=== PATIENT | female | born 1955 | race Caucasian/White ===

== ENCOUNTER 2017-08-14 14:56 | Emergency (ER) | payer BC ==
--- NOTE | 2017-08-14 15:42 | ED ---
Neuro HPI - General Chief Complaint: Neuro Symptoms/Deficit Stated Complaint: Poss stroke Time Seen by Provider: 08/14/17 15:09 Source: patient, family, RN notes reviewed Mode of arrival: wheelchair - History of Present Illness Is the patient presenting with stroke symptoms?: No Initial Comments: This is a 61-year-old female with a history of recently diagnosed ear infections who is currently being treated for the same who states she had the onset around 7:00 this morning of some abnormal feeling in her right side of her face and some increased watering of the right eye. She denies any focal weakness to her arms or legs any headache blurry vision nausea vomiting or other symptoms. No neck pain. No prior history of strokes no prior history of Mcgill's palsy. - Related Data Home Medications: Home Medications Medication Instructions Recorded Confirmed Amoxicillin/Potassium Clav 1 tab PO Q12HR 08/14/17 08/14/17 [Augmentin 875-125 Tablet] Enalapril Maleate [Vasotec] 5 mg PO DAILY 08/14/17 08/14/17 Thyroid,Pork [[place] Thyroid] 60 mg PO DAILY 08/14/17 08/14/17 Previous Rx's Medication Instructions Recorded predniSONE 30 mg PO BID #14 tab 08/14/17 valACYclovir HCL [Valacyclovir] 1,000 mg PO TID #21 tab 08/14/17 Allergies/Adverse Reactions: Allergies Allergy/AdvReac Type Severity Reaction Status Date / Time No Known Allergies Allergy Verified 08/14/17 15:18 Review of Systems ROS Statement: Those systems with pertinent positive or pertinent negative responses have been documented in the HPI. ROS Other: All systems not noted in ROS Statement are negative. General Exam - General Exam Comments Initial Comments: This is a well-developed well-nourished awake alert oriented 3 female General appearance: alert, anxious Head exam: Present: atraumatic, normocephalic, normal inspection Eye exam: Present: normal appearance, PERRL, EOMI. Absent: scleral icterus, conjunctival injection, periorbital swelling Pupils: Present: other (Increased tearing) ENT exam: Present: mucous membranes moist, other (Some subtle facial asymmetry in the right compared to the left with some lid lag noted. Before head appears to be involved. Some flattening of the right nasolabial fold compared to the left) Neck exam: Present: normal inspection, full ROM, other (No stridor JVD or bruits ). Absent: tenderness, meningismus, lymphadenopathy Respiratory exam: Present: normal lung sounds bilaterally. Absent: respiratory distress, wheezes, rales, rhonchi, stridor Cardiovascular Exam: Present: regular rate, normal rhythm, normal heart sounds. Absent: systolic murmur, diastolic murmur, rubs, gallop, clicks GI/Abdominal exam: Present: soft, normal bowel sounds. Absent: distended, tenderness, guarding, rebound, rigid Rectal exam: Present: deferred Extremities exam: Present: normal inspection, full ROM, normal capillary refill. Absent: tenderness, pedal edema, joint swelling, calf tenderness Back exam: Present: normal inspection Neurological exam: Present: alert, oriented X3, normal gait, motor sensory deficit, reflexes normal. Absent: CN II-XII intact (Evidence of a right side seventh nerve paresis) Psychiatric exam: Present: normal affect, normal mood Skin exam: Present: warm, dry, intact, normal color. Absent: rash Stroke MDM - NIH Stroke Scale 1a. Level of Consciousness: (0) alert 1b. LOC Questions: (0) answers correctly 1c. LOC Commands: (0) performs tasks correctly 2. Best Gaze: (0) normal 3. Visual: (0) no visual loss 4. Facial Palsy: (1) minor paralysis 5a. Motor Arm Left: (0) no drift 5b. Motor Arm Right: (0) no drift 6a. Motor Leg Left: (0) no drift 6b. Motor Leg Right: (0) no drift 7. Limb Ataxia: (0) absent 8. Sensory: (0) normal 9. Best Language: (0) no aphasia 10. Dysarthria: (0) normal 11. Extinction/Inattention: (0) no abnormality - Thrombolytic Inclusion/Exclusion Thrombolytic Exclusion Criteria: Symptom Onset > 3 Hours - Medical Decision Making The patient presents with symptoms consistent with Mcgill's palsy. She has have evidence of mastoiditis bilaterally she currently is on treatment for this. She 'll be placed on additional medication for treatment of Mcgill's palsy she is to have close follow-up with her doctor and return if any problems. Past Medical History Past Medical History: Hypertension, Thyroid Disorder History of Any Multi-Drug Resistant Organisms: None Reported Past Surgical History: Tonsillectomy Past Psychological History: No Psychological Hx Reported Smoking Status: Former smoker Past Alcohol Use History: Occasional Past Drug Use History: None Reported Course Vital Signs 08/14/17 15:02 Temperature 97.4 F L Pulse Rate 114 H Respiratory 18 Rate Blood Pressure 138/65 O2 Sat by Pulse 98 Oximetry Disposition Clinical Impression: Mcgill's palsy, Mastoiditis Disposition: HOME SELF-CARE Condition: Good Instructions: Mcgill Palsy (ED), Mastoiditis (ED) Additional Instructions: Continue with her current antibiotics, follow-up with her doctor in 2 days, Mick as directed Prescriptions: predniSONE 30 mg PO BID #14 tab valACYclovir HCL [Valacyclovir] 1,000 mg PO TID #21 tab Referrals: Bubba Gan DO [Primary Care Provider] - 1-2 days
--- NOTE | 2017-08-14 15:49 | CT ---
EXAMINATION TYPE: CT brain wo con DATE OF EXAM: 08/14/2017 COMPARISON: NONE HISTORY: 61-year-old female Bilateral ear infection and facial droop. TECHNIQUE: Examination was done in axial plane without intravenous contrast. Coronal and sagittal r econstructions performed. CT DLP: 986.6 mGycm Automated exposure control for dose reduction was used. FINDINGS: There is no evidence of acute intracranial hemorrhage, acute ischemic changes, mass, mass-effect, or extra-axial fluid collection. There is no effacement of cerebral sulci or basal subarachnoid cister ns. There is no hydrocephalus. There is no midline shift. Thurston-white matter distinction is preserv ed. Orbits and globes are intact. Paranasal sinuses are well pneumatized. There is complete opacification of the bilateral mastoid air cells as well as the middle ear cavities. IMPRESSION: Bilateral otomastoiditis characterized by extensive opacification. No acute intracranial abnormality seen.
[2017-08-14] MEDS ORDERED: predniSONE 50 MG TAB PO STA (16:05)
[2017-08-14] MEDS ORDERED: valACYclovir HCL 1,000 MG TABLET PO STA (16:08)
[2017-08-14 16:53] VITALS: BP 140/70; PULSE 78; RESP 16; TEMP 98
== END 2017-08-14 16:52 | disposition home or self-care (01) ==
LOC: EC 14:56
DX: G51.0 Bell's palsy (principal); H70.93 Unspecified mastoiditis, bilateral; I10 Essential (primary) hypertension; E07.9 Disorder of thyroid, unspecified; Z87.891 Personal history of nicotine dependence; Z79.899 Other long term (current) drug therapy
CPT/HCPCS: 70450; 99284; J7512

== ENCOUNTER 2018-08-09 16:07 | Inpatient (IN) | payer BC ==
[2018-08-09] MEDS ORDERED: SODIUM CHLORIDE 0.9% 1,000 ML IV STA ×2 (16:31)
[2018-08-09] MEDS ORDERED: PANTOPRAZOLE 40 MG/10 ML VIAL IVP STA (16:31)
[2018-08-09] MEDS ORDERED: SODIUM CHLORIDE 0.9% 500 ML 500 ML IV STA (16:31)
[2018-08-09] MEDS ORDERED: ONDANSETRON 4 MG/2 ML VIAL IVP STA (16:31)
[2018-08-09] MEDS ORDERED: DICYCLOMINE 10 MG/ML 2 ML AMP IM STA (16:31)
--- NOTE | 2018-08-09 16:32 | ED ---
Abdominal Pain HPI - General Chief Complaint: Abdominal Pain Stated Complaint: nausea/vomiting Time Seen by Provider: 08/09/18 16:24 Source: patient, RN notes reviewed, old records reviewed Mode of arrival: ambulatory Limitations: no limitations - History of Present Illness Initial Comments: This is a 62-year-old female the ER for evaluation presents today for evaluation of abdominal pain epigastric abdominal pain right upper quadrant bowel pain positive nausea positive vomiting occasional fevers. Patient does admit to recent travel history, patient wasn't indicated. Denies diarrheal all is mainly just nausea vomiting is currently. Patient admits to dehydration not feeling well weak lightheaded dizzy. No sick contacts that she knows, no change in medications. No prior surgical history -: days(s) Location: diffuse, RUQ, epigastric Radiation: epigastric Severity: moderate Severity scale (1-10): 7 Quality: cramping, aching Consistency: constant Improves With: nothing Worsens With: vomiting Context: foreign travel, possible food poisoning Associated Symptoms: nausea, vomiting - Related Data Home Medications Medication Instructions Recorded Confirmed Thyroid,Pork [[place] Thyroid] 60 mg PO DAILY 08/14/17 08/09/18 Allergies Allergy/AdvReac Type Severity Reaction Status Date / Time No Known Allergies Allergy Verified 08/09/18 16:42 Review of Systems ROS Statement: Those systems with pertinent positive or pertinent negative responses have been documented in the HPI. ROS Other: All systems not noted in ROS Statement are negative. Past Medical History Past Medical History: No Reported History, Hypertension, Thyroid Disorder History of Any Multi-Drug Resistant Organisms: None Reported Past Surgical History: Tonsillectomy Past Psychological History: No Psychological Hx Reported Smoking Status: Former smoker Past Alcohol Use History: Occasional Past Drug Use History: None Reported General Exam Limitations: no limitations General appearance: alert, in no apparent distress, anxious Head exam: Present: atraumatic, normocephalic, normal inspection Eye exam: Present: normal appearance, PERRL, EOMI. Absent: scleral icterus, conjunctival injection, periorbital swelling ENT exam: Present: normal exam, mucous membranes moist Neck exam: Present: normal inspection. Absent: tenderness, meningismus, lymphadenopathy Respiratory exam: Present: normal lung sounds bilaterally. Absent: respiratory distress, wheezes, rales, rhonchi, stridor Cardiovascular Exam: Present: regular rate, normal rhythm, normal heart sounds. Absent: systolic murmur, diastolic murmur, rubs, gallop, clicks GI/Abdominal exam: Present: soft, tenderness (Right upper quadrant), guarding, normal bowel sounds. Absent: distended, rebound, rigid Extremities exam: Present: normal inspection, full ROM, normal capillary refill. Absent: tenderness, pedal edema, joint swelling, calf tenderness Back exam: Present: normal inspection Neurological exam: Present: alert, oriented X3, CN II-XII intact Psychiatric exam: Present: normal affect, normal mood Skin exam: Present: warm, dry, intact, normal color. Absent: rash Course Vital Signs 08/09/18 08/09/18 16:18 19:15 Temperature 98.2 F 100.4 F H Pulse Rate 98 95 Respiratory 20 18 Rate Blood Pressure 133/100 147/93 O2 Sat by Pulse 98 97 Oximetry - Reevaluation(s) Reevaluation #1: 08/09/18 20:06 Medical record is reviewed Reevaluation #2: 08/09/18 20:06 Patient has pain control Medical Decision Making - Medical Decision Making 62 female the ER for evaluation of abdominal pain nausea vomiting, positive CT for cholecystitis. Patient was placed on antibiotics admitted for surgical evaluation consultation - Lab Data Result diagrams: 08/09/18 17:17 08/09/18 17:17 Lab Results 08/09/18 08/09/18 08/09/18 Range/Units 17:17 17:17 17:17 WBC 17.5 H (3.8-10.6) k/uL RBC 4.44 (3.80-5.40) m/uL Hgb 13.3 (11.4-16.0) gm/dL Hct 39.1 (34.0-46.0) % MCV 88.0 (80.0-100.0) fL MCH 29.9 (25.0-35.0) pg MCHC 33.9 (31.0-37.0) g/dL RDW 12.4 (11.5-15.5) % Plt Count 354 (150-450) k/uL Neutrophils % 84 % Lymphocytes % 10 % Monocytes % 4 % Eosinophils % 1 % Basophils % 0 % Neutrophils # 14.7 H (1.3-7.7) k/uL Lymphocytes # 1.8 (1.0-4.8) k/uL Monocytes # 0.8 (0-1.0) k/uL Eosinophils # 0.1 (0-0.7) k/uL Basophils # 0.0 (0-0.2) k/uL Sodium 137 (137-145) mmol/L Potassium 4.2 (3.5-5.1) mmol/L Chloride 101 (98-107) mmol/L Carbon Dioxide 24 (22-30) mmol/L Anion Gap 12 mmol/L BUN 12 (7-17) mg/dL Creatinine 0.50 L (0.52-1.04) mg/dL Est GFR (CKD-EPI)AfAm >90 (>60 ml/min/1.73 sqM) Est GFR (CKD-EPI)NonAf >90 (>60 ml/min/1.73 sqM) Glucose 109 H (74-99) mg/dL Plasma Lactic Acid Yaw 1.4 (0.7-2.0) mmol/L Calcium 10.2 (8.4-10.2) mg/dL Phosphorus 3.6 (2.5-4.5) mg/dL Magnesium 1.8 (1.6-2.3) mg/dL Total Bilirubin 1.0 (0.2-1.3) mg/dL AST 21 (14-36) U/L ALT 34 (9-52) U/L Alkaline Phosphatase 59 (38-126) U/L Total Protein 7.3 (6.3-8.2) g/dL Albumin 4.4 (3.5-5.0) g/dL Amylase <30 L (30-110) U/L Lipase 93 (23-300) U/L - Radiology Data Radiology results: report reviewed (CT abdomen pelvis positive cholecystitis), image reviewed Disposition Clinical Impression: Abdominal pain, Acute cholecystitis Disposition: ADMITTED IP TO THIS HOSP Condition: Fair Is patient prescribed a controlled substance at d/c from ED?: No Referrals: Bubba Gan DO [Primary Care Provider] - 1-2 days
[2018-08-09] MEDS ORDERED: METOCLOPRAMIDE 5 MG/ML 2 ML VIAL IVP STA (17:04)
[2018-08-09 18:04] LABS: Basophils % (A) 0 %; Eosinophils # (A) 0.1 k/uL (0-0.7); Eosinophils % (A) 1 %; HCT 39.1 % (34.0-46.0); HGB 13.3 gm/dL (11.4-16.0); Lymphocytes # (A) 1.8 k/uL (1.0-4.8); Lymphocytes % (A) 10 %; MCH 29.9 pg (25.0-35.0); MCHC 33.9 g/dL (31.0-37.0); Mean Platelet Volume 7.5; Monocytes # (A) 0.8 k/uL (0-1.0); Monocytes % (A) 4 %; Neutrophils # (A) 14.7 k/uL (1.3-7.7); Neutrophils % (A) 84 %; Platelet Count 354 k/uL (150-450); RBC 4.44 m/uL (3.80-5.40); RDW 12.4 % (11.5-15.5); WBC 17.5 k/uL (3.8-10.6)
[2018-08-09 18:10] LABS: ALT 34 U/L (9-52); AST 21 U/L (14-36); Albumin 4.4 g/dL (3.5-5.0); Alkaline Phosphatase 59 U/L (38-126); Amylase <30 U/L (30-110); Anion Gap 12 mmol/L; Blood Urea Nitrogen 12 mg/dL (7-17); Calcium 10.2 mg/dL (8.4-10.2); Carbon Dioxide 24 mmol/L (22-30); Chloride 101 mmol/L (98-107); Glucose 109 mg/dL (74-99); Lipase 93 U/L (23-300); Magnesium 1.8 mg/dL (1.6-2.3); Phosphorus 3.6 mg/dL (2.5-4.5); Potassium 4.2 mmol/L (3.5-5.1); Sodium 137 mmol/L (137-145); Total Protein 7.3 g/dL (6.3-8.2)
[2018-08-09] MEDS ORDERED: ACETAMINOPHEN TAB 500 MG TAB PO STA (19:10)
--- NOTE | 2018-08-09 19:35 | CT ---
EXAMINATION TYPE: CT abdomen pelvis w con DATE OF EXAM: 08/09/2018 COMPARISON: HISTORY: Nausea, vomiting x 3-[address] DLP: 833.4 mGycm Automated exposure control for dose reduction was used. TECHNIQUE: Helical acquisition of images was performed from the lung bases through the pelvis. CONTRAST: Performed without Oral Contrast and with IV Contrast, patient injected with 100 mL of Isovue 300. FINDINGS: BILIARY TREE: The gallbladder is markedly distended and its margins are markedly indistinct, associat ed with pericholecystic reticulation of the fat within the right anterior pararenal space. There is C T evidence suggesting cholelithiasis, but not choledocholithiasis. That is, the intrahepatic and extr ahepatic biliary tree appear to be normal caliber. LIVER: No significant abnormality is appreciated. PANCREAS: No significant abnormality is seen. SPLEEN: No significant abnormality is seen. ADRENALS: No significant abnormality is seen. KIDNEYS: No significant abnormality is seen. FREE AIR: No free air is visualized. RETROPERITONEAL ADENOPATHY: None visualized REPRODUCTIVE ORGANS: No significant abnormality is seen URINARY BLADDER: No significant abnormality is seen. PELVIC ADENOPATHY: None visualized. OSSEOUS STRUCTURES: No significant abnormality is seen. BOWEL: No significant abnormality is seen. OTHER: Visualized subdiaphragmatic structures are unremarkable. The vasculature is negative for acute findings. IMPRESSION: ACUTE CHOLECYSTITIS.
[2018-08-09] MEDS ORDERED: MORPHINE SULFATE 4 MG/ML SYRINGE IVP STA (19:57)
[2018-08-09] MEDS ORDERED: MORPHINE SULFATE 4 MG/ML SYRINGE IVP PRN (19:57)
[2018-08-09] MEDS ORDERED: AMPICILLIN-SULBACTAM 3 GM in SODIUM CHLORIDE 0.9% 100 ML IVPB STA (19:57)
[2018-08-09] MEDS: ONDANSETRON 4 MG/2 ML VIAL IVP PRN (21:17)
[2018-08-09] MEDS: LORazepam 2 MG/ML INJ IV PRN (22:50)
[2018-08-10 01:47] LABS: Appearance,Urine Clear (Clear); Bilirubin,Urine Negative (Negative); Blood,Urine Trace (Negative); Color,Urine Light Yellow; Glucose,Urine (UA) Negative (Negative); Ketones,Urine 1+ (Negative); Leukocyte Esterase,Urine Moderate (Negative); Nitrite,Urine Negative (Negative); PH, Urine 5.5 (5.0-8.0); Protein,Urine Negative (Negative); RBC,Urine 4 /hpf (0-5); Specific Gravity,Urine 1.028 (1.001-1.035); Squamous Epithelial Cell,Urine 1 /hpf (0-4); Urobilinogen,Urine <2.0 mg/dL (<2.0); WBC,Urine 24 /hpf (0-5)
[2018-08-10] MEDS: AMPICILLIN-SULBACTAM 3 GM in SODIUM CHLORIDE 0.9% 100 ML IVPB SCH ×4 (03:07→22:33)
--- NOTE | 2018-08-10 08:21 | US ---
EXAMINATION TYPE: US gallbladder DATE OF EXAM: 08/10/2018 COMPARISON: NONE CLINICAL HISTORY: 62-year-old female Pain. Abdominal pain with N/V for 1 week FINDINGS: EXAM MEASUREMENTS: Liver Length: 18.7 cm Gallbladder Wall: 0.2 cm measured by the veterinarian helper. However, on the provided images, some areas of the gallbladder wall appears thickened up to 7 mm. CBD: 0.5 cm Right Kidney: 12.4 x 6.7 x 5.5 cm Pancreas: Suboptimal visualization of the pancreatic tail. Visualized pancreatic head and body show no gross organomegaly. Liver: Borderline enlarged. No focal lesion. Gallbladder: Distended at 5.1 cm wide. Extensive sludge filling the gallbladder with multiple layeri ng calculi. No pericholecystic fluid. While the veterinarian helper measures normal gallbladder wall thicknes s, provided images suggest areas of wall thickening up to 7 mm. Evidence for sonographic Underwood's sign: not at time of exam CBD: wnl Right Kidney: No hydronephrosis. IMPRESSION: Hydropic gallbladder with areas of wall thickening, cholelithiasis, and extensive sludge filling the gallbladder lumen. Despite the negative sonographic Underwood sign, given appearance on CT, correlate fo r acute cholecystitis. If further imaging evaluation is desired, HIDA scan can be performed.
[2018-08-10] MEDS: PANTOPRAZOLE 40 MG/10 ML VIAL IVP SCH (09:25)
[2018-08-10] MEDS ORDERED: MIDAZOLAM 2 MG/2 ML VIAL IV PRN (14:33)
[2018-08-10] MEDS ORDERED: fentaNYL (PF) 50 MCG/ML 2 ML AMP IV PRN (14:33)
[2018-08-10] MEDS ORDERED: LACTATED RINGERS 1,000 ML IV SCH (14:45)
[2018-08-10] MEDS: ONDANSETRON 4 MG/2 ML VIAL IVP PRN (15:52)
--- NOTE | 2018-08-10 16:15 | P.GSHP ---
History of Present Illness H&P Date: 08/10/18 Chief Complaint: right upper quadrant pain This is a 62-year-old female who presented to the emergency room with complaints of right quadrant pain. Patient's workup found have evidence of cholecystitis with cholelithiasis and elevated white count. Past Medical History Past Medical History: Thyroid Disorder History of Any Multi-Drug Resistant Organisms: None Reported Past Surgical History: Tonsillectomy Additional Past Surgical History / Comment(s): breast biopsy- benign Past Anesthesia/Blood Transfusion Reactions: No Reported Reaction Past Psychological History: No Psychological Hx Reported Smoking Status: Former smoker Past Alcohol Use History: Occasional Past Drug Use History: None Reported - Past Family History Mother Family Medical History: No Reported History Medications and Allergies Home Medications Medication Instructions Recorded Confirmed Type Thyroid,Pork [[place] Thyroid] 60 mg PO DAILY 08/14/17 08/09/18 History Allergies Allergy/AdvReac Type Severity Reaction Status Date / Time No Known Allergies Allergy Verified 08/09/18 16:42 Surgical - Exam Vital Signs Temp Pulse Resp BP Pulse Ox 98.2 F 98 20 133/100 98 08/09/18 16:18 08/09/18 16:18 08/09/18 16:18 08/09/18 16:18 08/09/18 16:18 - General well developed, no distress - Eyes PERRL - ENT normal pinna - Neck no masses - Respiratory normal expansion - Cardiovascular Rhythm: regular - Abdomen Upper quadrant tenderness Abdomen: soft Results - Labs 08/09/18 17:17 08/09/18 17:17 Abnormal Lab Results - Last 24 Hours (Table) 08/09/18 08/09/18 08/10/18 Range/Units 17:17 17:17 01:15 WBC 17.5 H (3.8-10.6) k/uL Neutrophils # 14.7 H (1.3-7.7) k/uL Creatinine 0.50 L (0.52-1.04) mg/dL Glucose 109 H (74-99) mg/dL Amylase <30 L (30-110) U/L Urine Ketones 1+ H (Negative) Urine Blood Trace H (Negative) Ur Leukocyte Esterase Moderate H (Negative) Urine WBC 24 H (0-5) /hpf Microbiology - Last 24 Hours (Table) 08/10/18 01:15 Urine Culture - Preliminary Urine,Voided Diabetes panel 08/09/18 Range/Units 17:17 Sodium 137 (137-145) mmol/L Potassium 4.2 (3.5-5.1) mmol/L Chloride 101 (98-107) mmol/L Carbon Dioxide 24 (22-30) mmol/L BUN 12 (7-17) mg/dL Creatinine 0.50 L (0.52-1.04) mg/dL Glucose 109 H (74-99) mg/dL Calcium 10.2 (8.4-10.2) mg/dL AST 21 (14-36) U/L ALT 34 (9-52) U/L Alkaline Phosphatase 59 (38-126) U/L Total Protein 7.3 (6.3-8.2) g/dL Albumin 4.4 (3.5-5.0) g/dL Calcium panel 08/09/18 Range/Units 17:17 Calcium 10.2 (8.4-10.2) mg/dL Phosphorus 3.6 (2.5-4.5) mg/dL Albumin 4.4 (3.5-5.0) g/dL Pituitary panel 08/09/18 Range/Units 17:17 Sodium 137 (137-145) mmol/L Potassium 4.2 (3.5-5.1) mmol/L Chloride 101 (98-107) mmol/L Carbon Dioxide 24 (22-30) mmol/L BUN 12 (7-17) mg/dL Creatinine 0.50 L (0.52-1.04) mg/dL Glucose 109 H (74-99) mg/dL Calcium 10.2 (8.4-10.2) mg/dL Adrenal panel 08/09/18 Range/Units 17:17 Sodium 137 (137-145) mmol/L Potassium 4.2 (3.5-5.1) mmol/L Chloride 101 (98-107) mmol/L Carbon Dioxide 24 (22-30) mmol/L BUN 12 (7-17) mg/dL Creatinine 0.50 L (0.52-1.04) mg/dL Glucose 109 H (74-99) mg/dL Calcium 10.2 (8.4-10.2) mg/dL Total Bilirubin 1.0 (0.2-1.3) mg/dL AST 21 (14-36) U/L ALT 34 (9-52) U/L Alkaline Phosphatase 59 (38-126) U/L Total Protein 7.3 (6.3-8.2) g/dL Albumin 4.4 (3.5-5.0) g/dL - Imaging US - abdomen: report reviewed (Cholelithiasis with sludge and thickened gallbladder wall) Assessment and Plan Assessment: Acute cholecystitis. Patient will undergo laparoscopic cholecystectomy.
[2018-08-10] MEDS ORDERED: IV FLUID CONTINUATION 1,000 ML IV ONE (16:25)
[2018-08-10] MEDS ORDERED: HEPARIN SODIUM,PORCINE 5,000 UNIT/ML 1 ML VIAL SQ ONE (16:28)
[2018-08-10] MEDS ORDERED: BUPIVACAIN-EPI 0.25%-1:200,000 30 ML VIAL SQ ONE ×2 (17:03→17:36)
[2018-08-10] MEDS ORDERED: ePHEDrine SULFATE/0.9% NACL/PF 50 MG/5 ML SYRINGE IV ONE (17:04)
[2018-08-10] MEDS ORDERED: NEOSTIGMINE 1 MG/ML 10 ML VIAL ONE (17:04)
[2018-08-10] MEDS ORDERED: fentaNYL (PF) 50 MCG/ML 2 ML AMP ONE (17:04)
[2018-08-10] MEDS ORDERED: ROCURONIUM BROMIDE 10 MG/ML 10 ML VIAL IV ONE (17:04)
[2018-08-10] MEDS ORDERED: LIDOCAINE 1% INJ 10MG/ML (20 ML MDV) ONE (17:04)
[2018-08-10] MEDS ORDERED: GLYCOPYRROLATE 0.2 MG/ML 2 ML VIAL ONE (17:04)
[2018-08-10] MEDS ORDERED: PROPOFOL 10 MG/ML 20 ML VIAL IV ONE (17:04)
[2018-08-10] MEDS ORDERED: HYDROmorphone (PF) 1 MG/ML ONE (17:04)
[2018-08-10] MEDS ORDERED: MIDAZOLAM 2 MG/2 ML VIAL ONE (17:04)
[2018-08-10] MEDS ORDERED: SODIUM CHLORIDE 0.9% 50 ML with ceFAZolin 2,000 MG IV ONE ×2 (17:29)
[2018-08-10] MEDS ORDERED: HYDROcodone/APAP 5-325MG 1 EACH TAB PO PRN (18:21)
[2018-08-10] MEDS ORDERED: LACTATED RINGERS 1,000 ML IV ONE (18:21)
[2018-08-10] MEDS ORDERED: NALOXONE 0.4 MG/ML 1 ML VIAL IV PRN (18:21)
[2018-08-10] MEDS ORDERED: HYDROmorphone 1 MG/ML 1 ML SYRINGE IVP PRN (18:21)
--- NOTE | 2018-08-10 18:21 | P.OP ---
Date of Procedure: 08/10/18 Preoperative Diagnosis: Cholecystitis Postoperative Diagnosis: Cholecystitis Procedure(s) Performed: Laparoscopic cholecystectomy Anesthesia: HERBERT Surgeon: Gavin Magallanes Estimated Blood Loss (ml): 10 Pathology: other (Gallbladder, gallstones) Condition: stable Disposition: PACU Description of Procedure: ThThe patient was placed on the operating table. The patient received a general endotracheal tube anesthesia. The patients abdomen was prepped and draped in the usual sterile fashion. Through an infraumbilical stab incision , the fascia of the anterior abdominal wall was grasped with a pair of Kochers and then the Veress needle was placed in the peritoneal cavity. Position of the Veress needle was confirmed with positive drop test. The abdomen was then insufflated. After adequate insufflation, the 10 mm trocar was placed in the peritoneal cavity. Following this the laparoscope was placed in the peritoneal cavity. The patient was placed in the head-up, right side up position and then a 5 mm trocar was placed in the right lateral and right subcostal position under direct visualization. A 8 mm trocar was placed in the epigastric position. The gallbladder appeared to be acutely inflamed and very firm. The gallbladder was aspirated. There were small gallstones in the gallbladder. The gallbladder was grasped in the fundus and infundibulum. Traction on the gallbladder was placed in the lateral and the cephalad positions. The triangle of Calot was visualized.. The cystic duct was bluntly dissected until the union of the cystic duct and common bile duct was seen. The cystic duct was then ligated using a 2-0 Ethibond suture the timeout device. The cystic duct was then divided and sealed with the Harmonic scissors. A PDS Endoloop was then placed throughout the cystic duct stump. The cystic artery divided and sealed with the Harmonic scissors. The gallbladder was then removed from the liver bed using Harmonic scissors. The gallbladder was then extracted through the epigastric port site. Operative field was checked for any bleeding spots and Harmonic scissors was used to coagulate the liver bed. The abdomen was irrigated. The trocars were removed. The skin was closed using interrupted 3-0 Vicryl suture. Dermabond dressing were applied. The patient tolerated the procedure well.
[2018-08-10] MEDS: HYDROmorphone 1 MG/ML 1 ML SYRINGE IVP ONE ×3 (18:30→18:49)
[2018-08-10 19:46] VITALS: RESP 20
[2018-08-10] MEDS: KETOROLAC 30 MG/ML 1 ML VIAL IVP SCH ×2 (21:57→23:48)
[2018-08-10] MEDS: FAMOTIDINE 20 MG TAB PO SCH (22:37)
[2018-08-10] MEDS: DOCUSATE 100 MG CAP PO SCH (22:37)
[2018-08-10] MEDS: LORazepam 2 MG/ML INJ IV PRN (22:44)
--- NOTE | 2018-08-10 23:11 | CONS ---
CONSULTATION DATE OF SERVICE: 08/10/2018. REASON FOR CONSULTATION: Advice regarding hypothyroidism and other medical issues, requested by Dr. Magallanes. HISTORY OF PRESENT ILLNESS: This 62-year-old woman with a past medical history of hypothyroid, remote history of nicotine dependence, being followed by in the outpatient setting, underwent laparoscopic cholecystectomy for cholecystitis by Dr. Magallanes. There is no history of fever or rigors. No history of headache, loss of consciousness, chest pain, palpitations, hematochezia or melena. PAST MEDICAL: Hypothyroidism. HOME MEDICATIONS: [place] Thyroid 60 mg daily. ALLERGIES: None. FAMILY HISTORY: No history of heart disease or strokes in the family. SOCIAL HISTORY: History of smoking. Occasional alcohol intake. REVIEW OF SYSTEMS: ENT: No diminished vision or hearing. CARDIOVASCULAR: No angina or palpitations. RESPIRATORY: No cough. GI: As mentioned earlier. : No dysuria or hematuria. NERVOUS SYSTEM: No numbness or weakness. ALLERGY: None. No asthma or hayfever. MUSCULOSKELETAL: As mentioned earlier. HEMATOLOGY/ONCOLOGY: No history of anemia. ENDOCRINE: As mentioned earlier. CONSTITUTIONAL: As mentioned. DERMATOLOGY: Negative. RHEUMATOLOGY: Negative. PHYSICAL EXAMINATION: Pulse is 102, blood pressure 130/70, respirations 16, temperature 98.6, pulse ox 94% on room air. HEENT: Conjunctivae normal. Oral mucosa moist. NECK: No jugular venous distention. No lymph node enlargement. CARDIOVASCULAR: : S1 and S2 muffled. No rhonchi, no crackles. ABDOMEN: Soft, nontender. Status post surgery. LEGS: No edema, no swelling. NERVOUS SYSTEM: Higher functions as mentioned. Moves all limbs equally. LYMPHATIC: No lymph nodes palpable in the neck, axillae, or groin. SKIN: No ulcers. LABS: WBC 17.5 otherwise CMP within normal limits. ASSESSMENT: 1. Status post laparoscopic cholecystectomy. 2. Hypothyroidism. 3. Increased WBC. 4. History of tonsillectomy. 5. History of remote history of nicotine dependence. RECOMMENDATIONS AND DISCUSSION: In this 62-year-old woman who presented with multiple medical issues after surgery, a this time I recommend to continue current management. Continue symptomatic treatment. Recommend resume home dose of thyroid. Incentive spirometry. DVT prophylaxis. We will follow the patient closely. The patient may be asked to follow up with primary physician closely after discharge. Thank you, Dr. Magallanes, for letting us participate in the care of this patient. MMRAHL / IJN: [id number] / BRANDI
[2018-08-11] MEDS: AMPICILLIN-SULBACTAM 3 GM in SODIUM CHLORIDE 0.9% 100 ML IVPB SCH ×2 (03:47→07:41)
[2018-08-11] MEDS: KETOROLAC 30 MG/ML 1 ML VIAL IVP SCH (06:15)
[2018-08-11 06:22] VITALS: BP 129/83; PULSE 90; TEMP 98.3
[2018-08-11] MEDS: PANTOPRAZOLE 40 MG/10 ML VIAL IVP SCH (07:36)
[2018-08-11] MEDS: DOCUSATE 100 MG CAP PO SCH (07:38)
[2018-08-11] MEDS: FAMOTIDINE 20 MG TAB PO SCH (07:41)
[2018-08-11] MEDS ORDERED: THYROID, PORK 30 MG TAB PO SCH (09:00)
[2018-08-11] MEDS ORDERED: ENOXAPARIN 40 MG/0.4 ML SYRINGE SQ SCH (09:00)
[2018-08-11 10:29] LABS: Basophils % (A) 0 %; Eosinophils # (A) 0.1 k/uL (0-0.7); Eosinophils % (A) 1 %; HCT 31.8 % (34.0-46.0); HGB 10.4 gm/dL (11.4-16.0); Lymphocytes # (A) 1.4 k/uL (1.0-4.8); Lymphocytes % (A) 17 %; MCH 29.3 pg (25.0-35.0); MCHC 32.7 g/dL (31.0-37.0); MCV 89.6 fL (80.0-100.0); Mean Platelet Volume 7.6; Monocytes # (A) 0.4 k/uL (0-1.0); Monocytes % (A) 4 %; Neutrophils # (A) 6.4 k/uL (1.3-7.7); Neutrophils % (A) 76 %; Platelet Count 283 k/uL (150-450); RBC 3.55 m/uL (3.80-5.40); RDW 12.4 % (11.5-15.5); WBC 8.4 k/uL (3.8-10.6)
--- NOTE | 2018-08-11 10:40 | P.DS ---
Providers Date of admission: 08/09/18 21:05 Expected date of discharge: 08/11/18 Attending physician: Gavin Magallanes Consults: 08/10/18 18:21 Consult Physician Routine Consulting Provider: Phoenix Botello Consult Reason/Comments: Medical management Do you want consulting provider notified?: Yes Primary care physician: Bubba Gan Hospital Course: This is a 62-year-old female who was admitted to the hospital with cholecystitis. Patient underwent laparoscopic cholestatic. Please hospital chart for details. Procedures: Laparoscopic cholecystectomy Patient Condition at Discharge: Fair Plan - Discharge Summary Discharge Rx Participant: No New Discharge Prescriptions: New Docusate [Colace] 100 mg PO BID #20 capsule HYDROcodone/APAP 7.5-325MG [[place] 7.5-325] 1 tab PO Q4H PRN 3 Days #18 tab PRN Reason: Pain No Action Thyroid,Pork [[place] Thyroid] 60 mg PO DAILY Discharge Medication List Thyroid,Pork [[place] Thyroid] 60 mg PO DAILY 08/14/17 [History] Docusate [Colace] 100 mg PO BID #20 capsule 08/11/18 [Rx] HYDROcodone/APAP 7.5-325MG [[place] 7.5-325] 1 tab PO Q4H PRN 3 Days #18 tab 08/11 [Rx] Follow up Appointment(s)/Referral(s): Bubba Gan DO [Primary Care Provider] - 1-2 days Gavin Magallanes MD [STAFF PHYSICIAN] - 1 Week
[2018-08-11 10:49] LABS: ALT 48 U/L (9-52); AST 50 U/L (14-36); Albumin 3.1 g/dL (3.5-5.0); Alkaline Phosphatase 68 U/L (38-126); Anion Gap 7 mmol/L; Blood Urea Nitrogen 12 mg/dL (7-17); Calcium 9.1 mg/dL (8.4-10.2); Carbon Dioxide 27 mmol/L (22-30); Chloride 103 mmol/L (98-107); Glucose 95 mg/dL (74-99); Potassium 3.7 mmol/L (3.5-5.1); Sodium 137 mmol/L (137-145); Total Bilirubin 0.9 mg/dL (0.2-1.3); Total Protein 5.6 g/dL (6.3-8.2)
--- NOTE | 2018-08-11 23:39 | PN ---
PROGRESS NOTE DATE OF SERVICE: 08/11/2018 This 62-year-old woman who was admitted after laparoscopic cholecystectomy is improving significantly. No chest pain. No palpitations. No fever. EXAM: Alert and oriented. Pulse is 99, blood pressure 120/80, temperature 98.1, pulse ox 98% on room air. HEENT: Conjunctivae normal. Oral mucosa. NECK: No jugular venous distention. No lymph node enlargement. CARDIOVASCULAR: S1, S2. RESPIRATORY: Diminished breath sounds at the bases. No rhonchi, no crackles. ABDOMEN: Soft, nontender. LEGS: No swelling. NERVOUS SYSTEM: No focal deficits. LAB STUDIES: WBC 8.2, hemoglobin 10.4. ASSESSMENT: 1. Status post laparoscopic cholecystectomy. 2. Hypothyroidism. 3. Increased WBC, improved. 4. History of tonsillectomy. 5. History of nicotine dependence. 6. Urinary tract infection. RECOMMENDATIONS: Continue current management continue symptomatic treatment. Otherwise, at this time I recommend a short course of antibiotics and continue to monitor. Follow closely with primary physician. MMODL / IJN: [id number] /
== END 2018-08-11 11:12 | disposition home or self-care (01) | DRG 418 ==
LOC: EC 16:07 → 4MS4W 20:51 → OBSVTOIN 21:05
PROVIDERS: ADMIT Surgery; ATTEND Surgery
PROC: 0FT44ZZ Resection of Gallbladder, Percutaneous Endoscopic Approach (ICD-10-PCS; principal; 2018-08-10 14:15)
DX: K80.00 Calculus of gallbladder with acute cholecystitis without obstruction (principal); N39.0 Urinary tract infection, site not specified; E03.9 Hypothyroidism, unspecified; E86.0 Dehydration; Z87.891 Personal history of nicotine dependence; Z79.890 Hormone replacement therapy
CPT/HCPCS: 36415; 74177; 76705; 80053; 81001; 82150; 83605; 83690; 83735; 84100; 85025; 87086; 88304; 96361; 96372; 96374; 96375; 99285